=== PATIENT | male | born 2005 | race Hispanic/Latino ===

== ENCOUNTER 2025-05-21 18:33 | Emergency (ER) | payer SELFPAY ==
[2025-05-21 18:57] LABS: #Basophils 0.1 thou/uL (0.0-0.2); #Lymphocytes 1.4 thou/uL (1.20-3.40); #Monocytes 0.8 thou/uL (0.11-0.59); #Neutrophils 10.8 thou/uL (1.40-6.50); %Basophils 0.6 % (0.0-1.0); %Eosinophils 0.1 % (0.0-10.0); %Lymphocytes 10.9 % (28.0-48.0); %Monocytes 5.8 % (0.0-4.0); %Neutrophils 82.6 % (31.0-61.0); Hematocrit 42.2 % (42.0-52.0); Hemoglobin 14.8 g/dL (14.0-18.0); Mean Corpuscular HGB CONC 35.2 g/dL (32.0-36.0); Mean Corpuscular Hemoglobin 29.6 pg (25.0-35.0); Mean Corpuscular Volume 83.9 fl (78.0-98.0); Mean Platelet Volume 6.6 fL (7.4-10.4); Platelet Count 260 10x3/uL (130-400); RBC Distribution Width 11.6 % (11.5-14.5); Red Blood Cell (RBC) Count 5.02 mill/uL (4.00-5.20); White Blood Cell (WBC) Count 13.1 10x3/uL (4.8-10.8)
[2025-05-21 19:15] LABS: ALT (SGPT) 24 U/L (Less than 45); AST (SGOT) 47 U/L (11-34); Acetaminophen Less than 10 mcg/mL (Less than 10); Albumin 4.5 g/dL (3.1-4.5); Alcohol 301.7 mg/dL (Less than 10); Alkaline Phosphatase 78 U/L (50-130); Anion Gap 19 mmol/L (10-20); BUN (Urea Nitrogen) 10 mg/dL (8.9-20.6); Bilirubin, Total 0.4 mg/dL (0.3-1.2); Calc. Creatinine Clearance 0 mL/min (70-130); Carbon Dioxide 20 mmol/L (22-29); Chloride 106 mmol/L (98-107); Estimated GFR 111; Globulin 3.3 g/dL (2.4-3.5); Glucose 105 mg/dL (70-105); Potassium 3.8 mmol/L (3.5-5.1); Protein, Total 7.8 g/dL (6.0-8.3); Salicylate Less than 8.0 mg/dL (Less than 8.0); Sodium 141 mmol/L (136-145)
[2025-05-21 19:49] LABS: Bilirubin Negative (Negative); Blood, Urine Trace (Negative); Clarity Clear (Clear); Glucose, Urine (Dipstick) Negative (Negative); Ketone, Urine Negative (Negative); Leukocyte Negative (Negative); Nitrite Negative (Negative); Protein, Urine (Dipstick) Negative (Neg-Trace); Specific Gravity, Urine Less/Equal 1.005 (1.005-1.030); Urobilinogen 0.2 mg/dL (Less than 2)
[2025-05-21 19:50] LABS: Bacteria/HPF 2+ HPF (None Seen); CAUTI Indications for Culture Alt mental st,lethar; RBC/HPF None Seen HPF (0-3); Squamous Epithelial None Seen HPF (0-3); WBC/HPF 0-3 HPF (0-3)
[2025-05-21 19:51] LABS: Urine Culture Reflex No No
[2025-05-21 19:57] LABS: Amphetamine Negative (Negative); Barbiturates Screen Negative (Negative); Benzodiazepine Screen Negative (Negative); Cocaine Metabolite Screen Negative (Negative); Methadone Negative (Negative); Methamphetamine Negative (Negative); Opiate Screen Negative (Negative); Oxycodone Screen Negative (Negative); Phencyclidine (PCP) Negative (Negative); THC/Cannabinoid Screen PRELIM POSITIVE (Negative); Tricyclic Screen Negative (Negative)
== END 2025-05-21 20:45 ==
LOC: BURERS 18:33 → EEVIPCON 18:33 → BURERS 20:45
DX: S02.2XXA Fracture of nasal bones, initial encounter for closed fracture (principal); S00.83XA Contusion of other part of head, initial encounter; S20.311A Abrasion of right front wall of thorax, initial encounter; F10.129 Alcohol abuse with intoxication, unspecified; Y04.0XXA Assault by unarmed brawl or fight, initial encounter
CPT/HCPCS: 70450; 70486; 72125; 80053; 80306; 80307; 81001; 85025